=== PATIENT | male | born 1955 | race Caucasian/White ===

== ENCOUNTER 2017-04-08 06:29 | Inpatient (IN) | payer BC ==
[2017-04-08] MEDS ORDERED: ceFAZolin 2 GM in Premix Bag 1 BAG IV SCH (07:12)
[2017-04-08] MEDS ORDERED: Propofol 200 MG/20 ML SDV ONE ×2 (07:15→09:23)
[2017-04-08] MEDS ORDERED: Lidocaine 2% 5 ML SDV ONE (07:15)
[2017-04-08] MEDS ORDERED: Midazolam 1 MG/ML 2 ML SDV ONE (07:16)
[2017-04-08] MEDS ORDERED: fentaNYL 100 MCG/2 ML SDV ONE (07:16)
[2017-04-08] MEDS ORDERED: fentaNYL 250 MCG/5 ML SDV ONE (07:16)
[2017-04-08] MEDS ORDERED: Neostigmine Methylsulfate 1 MG/ML 5 ML Syringe ONE (07:17)
[2017-04-08] MEDS ORDERED: Ondansetron 4 MG/2 ML SDV ONE (07:17)
[2017-04-08] MEDS ORDERED: Rocuronium 10 MG/ML 10 ML Syringe ONE (07:17)
[2017-04-08] MEDS ORDERED: ePHEDrine 50 MG/ML SDV ONE ×2 (07:18→08:33)
[2017-04-08] MEDS: Lactated Ringers 1,000 ML IV SCH ×3 (07:30→22:27)
--- NOTE | 2017-04-08 07:33 | PCM.PREANE ---
Preanesthetic Assessment - Anesthesia/Transfusion/Family Hx Anesthesia History: Prior Anesthesia Without Reaction Family History of Anesthesia Reaction: No Transfusion History: No Prior Transfusion(s) - Review of Systems General: No Symptoms Pulmonary: No Symptoms Cardiovascular: No Symptoms Gastrointestinal: No Symptoms Neurological: No Symptoms Other: Reports: None - Physical Assessment NPO Status Date: 04/07/17 NPO Status Time: 23:00 O2 Sat by Pulse Oximetry: 97 Respiratory Rate: 16 Vital Signs: Last Vital Signs Temp 36.8 C 04/08/17 07:00 Pulse 90 04/08/17 07:00 Resp 16 04/08/17 07:00 BP 137/88 04/08/17 07:00 Pulse Ox 97 04/08/17 07:00 Height: 1.85 m Weight: 96.162 kg ASA Class: 2 Mental Status: Alert & Oriented x3 Airway Class: Mallampati = 2 Dentition: Reports: Normal Dentition ROM/Head Extension: Full Lungs: Clear to Auscultation, Normal Respiratory Effort Cardiovascular: Regular Rate, Regular Rhythm - Allergies Allergies/Adverse Reactions: Allergies Allergy/AdvReac Type Severity Reaction Status Date / Time No Known Allergies Allergy Verified 04/06/17 14:13 - Anesthesia Plan Pre-Op Medication Ordered: None (recemtly started on lisinopril for htn) - Acknowledgements Anesthesia Type Planned: Spinal Pt an Appropriate Candidate for the Planned Anesthesia: Yes Alternatives and Risks of Anesthesia Discussed w Pt/Guardian: Yes Pt/Guardian Understands and Agrees with Anesthesia Plan: Yes PreAnesthesia Questionnaire - Past Health History Medical/Surgical History: Denies Medical/Surgical History Cardiovascular History: Reports: Hypertension Other Cardiovascular History: recently diagnosed Gastrointestinal History: Reports: GERD Other Gastrointestinal History: takes OTC Prilosec Musculoskeletal History: Reports: Arthritis - Past Surgical History Head Surgeries/Procedures: GI Surgical History: Reports: Colonoscopy - SUBSTANCE USE Smoking Status *Q: Never Smoker Tobacco Use Within Last Twelve Months: No Recreational Drug Use History: No - HOME MEDS Home Medications: Home Meds Aspirin [[place] Aspirin] 81 mg PO DAILY 01/28/16 [History] Fish Oil/[place]-3 Fatty Acids [Fish Oil 1,000 MG] 1,000 mg PO DAILY 01/28/16 [ History] Gluc 2KCl/Chondr/Sandee Hy/Hy Ac [Glucosamine & Chondroitin Cap] 1 tab PO DAILY [History] Multivitamin [Multivitamins] 1 tab PO DAILY 01/28/16 [History] Lisinopril 20 mg PO QAM 04/06/17 [History] Omeprazole Magnesium [Prilosec Otc] 10 mg PO DAILY 04/06/17 [History] - CURRENT (IN HOUSE) MEDS Current Meds: Current Medications Cefazolin Sodium/Dextrose 2 gm (/ Premix) 50 mls @ 50 mls/hr IV ONETIME [facility] Lactated Ringer's (Ringers, Lactated) 1,000 mls @ 100 mls/hr IV ASDIRECTED [facility] Tranexamic Acid (Cyklokapron) 2,000 mg IV ONETIME ONE Stop: 04/08/17 08:01 Discontinued Medications Ephedrine Sulfate (Ephedrine Sulfate) Confirm Administered Dose 50 mg .ROUTE .STK-MED ONE Stop: 04/08/17 07:19 Fentanyl (Sublimaze) Confirm Administered Dose 100 mcg .ROUTE .STK-MED ONE Stop: 04/08/17 07:17 Fentanyl (Sublimaze) Confirm Administered Dose 250 mcg .ROUTE .STK-MED ONE Stop: 04/08/17 07:17 Glycopyrrolate () Confirm Administered Dose 1 mg .ROUTE .STK-MED ONE Stop: 04/08/17 07:18 Lidocaine (Xylocaine-Mpf 2%) Confirm Administered Dose 10 ml .ROUTE .STK-MED ONE Stop: 04/08/17 07:16 Midazolam HCl (Versed 1 Mg/Ml) Confirm Administered Dose 2 mg .ROUTE .STK-MED ONE Stop: 04/08/17 07:17 Neostigmine Methylsulfate (Neostigmine) Confirm Administered Dose 5 mg .ROUTE .STK-MED ONE Stop: 04/08/17 07:18 Ondansetron HCl (Zofran) Confirm Administered Dose 4 mg .ROUTE .STK-MED ONE Stop: 04/08/17 07:18 Propofol (Diprivan 20 Ml) Confirm Administered Dose 400 mg .ROUTE .STK-MED ONE Stop: 04/08/17 07:16 Rocuronium [place] (Zemuron) Confirm Administered Dose 100 mg .ROUTE .STK-MED ONE Stop: 04/08/17 07:18 Tranexamic Acid (Cyklokapron) Confirm Administered Dose 2,000 mg .ROUTE .STK- MED ONE Stop: 04/08/17 07:24
[2017-04-08] MEDS ORDERED: fentaNYL 100 MCG/2 ML SDV IVPUSH PRN (09:00)
[2017-04-08] MEDS ORDERED: HYDROmorphone 2 MG/ML Syringe IVPUSH ONE (09:00)
[2017-04-08] MEDS ORDERED: Aluminum Hydroxide/Magnesium Hydroxide/Simethicone Susp 30 ML Cup PO PRN (09:58)
[2017-04-08] MEDS ORDERED: diphenhydrAMINE 25 MG Cap PO PRN (09:58)
[2017-04-08] MEDS ORDERED: Morphine 4 MG/ML Syringe IVPUSH PRN (09:58)
[2017-04-08] MEDS ORDERED: Ondansetron 4 MG/2 ML SDV IV PRN (09:58)
[2017-04-08] MEDS ORDERED: Bisacodyl 10 MG Supp RECTAL PRN (09:58)
--- NOTE | 2017-04-08 10:00 | PCM.OPNOTE ---
- General Post-Op/Procedure Note Date of Surgery/Procedure: 04/08/17 Operative Procedure(s): right anterior total hip arthroplasty Findings: severe OA Pre Op Diagnosis: right hip osteoarthritis Post-Op Diagnosis: same Anesthesia Technique: General ET Tube, Spinal Primary Surgeon: Gabino Bee Mai Automobile Mechanic Radiator: Yadi Marin Reason Automobile Mechanic Radiator Was Necessary: positioning, relocation and closing Pathology: femoral head EBL in mLs: 300 Condition: Good
--- NOTE | 2017-04-08 11:43 | OR ---
SURGEON: Gabino Rob MD DATE OF PROCEDURE: 04/08/2017 STATISTICAL TECHNICIAN: SHIRA Palomino. PREOPERATIVE DIAGNOSIS: Right hip osteoarthritis. POSTOPERATIVE DIAGNOSIS: Right hip osteoarthritis. OPERATION PERFORMED: Right anterior total hip arthroplasty. ANESTHESIA: Spinal and general. COMPLICATION: None. ESTIMATED BLOOD LOSS: 300 mL. SPECIMENS: Femoral head. IMPLANT: Paulo Continuum trabecular metal shell with cluster holes, 58 mm outer diameter, one 6.5 x 30 mm bone screw, Vivacit-E neutral liner, 36 mm inner diameter, M/L Taper press-fit stem, size 13.5, standard offset, and Biolox delta ceramic femoral head 36 mm diameter, -3.5 neck length. INDICATIONS: The patient is a 61-year-old male with severe hip osteoarthritis. He has failed conservative management and wished to undergo above procedure. He understands the risks, benefits, alternatives, and complications of the procedure including, but not limited to infection, neurovascular injury, continued pain, nonresolution of symptoms, dislocation, leg-length discrepancy, or fracture, and he wished to proceed. SHIRA Marin was instrumental in case with positioning, manipulating the leg, relocation, and closing. DESCRIPTION OF PROCEDURE: The patient was seen in the preoperative area. Operative site was marked. He was taken to the operating room and spinal anesthetic was given. The operative leg had been marked with the patient. The patient was placed supine on the Brown table. General anesthesia was induced. Endotracheal tube was placed. The legs were placed in the leg bars and the right hip was prepped and draped in sterile fashion using alcohol followed by ChloraPrep. A formal time-out was taken, identifying the correct patient, procedure, and extremity. He received preop antibiotics, 2 g Ancef and also received 2 g TXA. [place]an covering is over the incision. A 10 cm incision starting just lateral to the ASIS going obliquely down to the femur was made. Dissection was carried down to the subcutaneous tissues. Hemostasis was obtained. The fascia overlying the TFL was opened and the interval between TFL and sartorius and deep between the abductors and rectus was performed protecting the lateral femoral cutaneous nerve. A deep Giovanni retractor was placed. The vastus lateralis fascia was opened. The anterior vessels were coagulated. The capsule was then held and tagged with two FiberWire's. The neck was cut from the saddle region to 1 cm above the lesser trochanter based on preoperative templating and the head was removed. It was found to have severe arthritis with osteophytes and complete obliteration of the joint space. The anterior and posterior retractors were placed. Inferior capsule was released. The ileus psoas was left alone. The labrum remnants were removed as well as the pulvinar and then sequential reaming under fluoroscopic control after planing the bed to make sure it was level, it was performed with starting at 53 mm based on the size of the head at 53. It was reamed up to 57 and then a continuum trabecular metal shell with cluster holes placed in 40 degrees of abduction, 10-15 degrees of anteversion. This had excellent press fit. Once straight superior bone screw was placed after drilling. The wound was irrigated and the neutral liner was impacted. There was no overhang anteriorly of the shell. The leg was then externally rotated, abducted, and extended after placing the femoral lift. The superior capsule obturator, internus, and piriformis were released. The central canal finder was utilized and hip was sequentially broached from size 4 up to a 13.5, it was trial and reduced with a standard offset +3.5 neck length. Printed overlay technique with the opposite hip with fluoroscopy showed equal offset with leg be about 6 mm long. The hip was once again dislocated and the final 13.5 standard offset M/L taper stem was impacted following the [place] version. It was trialed and reduced with a zero neck length. Printed overlay technique showed to be slightly longer but equal offset and therefore the hip was dislocated. A -3.5 ceramic head, 36 mm inner diameter was impacted. Once again, final reduction films showed equal leg lengths and offset compared to the opposite side. Wound was thoroughly irrigated throughout the case. The 2 tag sutures were tied together. The fascia closed with #1 Vicryl, subcutaneous tissues with 2-0 Strata-Fix. Skin was closed with running 4-0 Monocryl. Dermabond tape and Aquacel dressing were placed. The patient was extubated in operating room and transferred to recovery room in stable condition. Sponge and needle counts were correct at the end of the case. There were no complications. PLAN: The patient will be given postoperative protocol with aspirin for DVT prophylaxis. KELLY BOSS /[id number]
--- NOTE | 2017-04-08 12:20 | PCM.POSTAN ---
POST ANESTHESIA ASSESSMENT - MENTAL STATUS Mental Status: Alert, Oriented - RESPIRATORY Respiratory Status: Respiratory Rate WNL, Airway Patent, O2 Saturation Stable - CARDIOVASCULAR CV Status: Pulse Rate WNL, Blood Pressure Stable - GASTROINTESTINAL GI Status: No Symptoms - POST OP HYDRATION Hydration Status: Adequate & Stable
[2017-04-08] MEDS: Acetaminophen/HYDROcodone 325-5 MG Tab PO PRN ×4 (13:22→22:22)
--- NOTE | 2017-04-08 15:54 | CR ---
EXAMINATION: Right hip HISTORY: Arthroplasty COMPARISON: 02/10/2017 TECHNIQUE: 4 fluoroscopic images provided. FINDINGS/IMPRESSION: Operative control films demonstrate placement of right total hip hardware. Kacie ining osseous structures appear unremarkable.
[2017-04-08] MEDS: ceFAZolin 2 GM in Premix Bag 1 BAG IV SCH (15:58)
--- NOTE | 2017-04-08 18:21 | PCM48HPAN ---
Post Anesthesia Note - EVALUATION WITHIN 48HRS OF ANESTHETIC Vital Signs in Normal Range: Yes Patient Participated in Evaluation: Yes Respiratory Function Stable: Yes Airway Patent: Yes Cardiovascular Function Stable: Yes Hydration Status Stable: Yes Pain Control Satisfactory: Yes Nausea and Vomiting Control Satisfactory: Yes Mental Status Recovered: Yes
[2017-04-08] MEDS: Docusate Sodium 100 MG Cap PO SCH (21:18)
[2017-04-09] MEDS: ceFAZolin 2 GM in Premix Bag 1 BAG IV SCH (00:15)
[2017-04-09] MEDS: Acetaminophen/HYDROcodone 325-5 MG Tab PO PRN ×2 (04:08→08:30)
[2017-04-09] MEDS ORDERED: Sodium Chloride 0.9% 10 ML Syringe FLUSH PRN (07:19)
[2017-04-09] MEDS ORDERED: Sodium Chloride 0.9% 2.5 ML Syringe FLUSH PRN (07:19)
[2017-04-09] MEDS ORDERED: Omeprazole 20 MG Cap.CR PO SCH (07:30)
--- NOTE | 2017-04-09 07:43 | PCM.SN ---
- Free Text/Narrative Note: S: overall doing very well, just a little stiff. Ambulating in hallway and able to go to bathroom. tolerating PO. no CP/SOB O: afebrile, vital signs stable dressing clean/dry/intact. 2+ pedal pulse. normal motor and sensation distally. no swelling distally. small swelling in left thigh. labs pending A/P: POD #1 right BEBETO - full weight bearing. walker -> cane as tolerated - ASA for DVT prophylaxis. - SLIV, d/c today
--- NOTE | 2017-04-09 07:46 | PCM.DCSUM1 ---
Discharge Summary - Hospital Course Free Text/Narrative:: admitted for planned right hip replacement Brief History: severe right hip OA - Discharge Data Discharge Date: 04/09/17 Discharge Disposition: Home, Self-Care 01 Condition: Good - Patient Summary/Data Operative Procedure(s) Performed: right anterior total hip arthroplasty Consults: Consultations 04/08/17 09:58 PT Evaluation and Treatment [CONS] Routine Hospital Course: did well postoperatively with no issues. ambulated and pain was contolled. - Patient Instructions Diet: Usual Diet as Tolerated Activity: Full Weight Bearing Driving: Do Not Drive Driving, Other: may drive in 2 weeks Showering/Bathing: May Shower Wound/Incision Care: Do NOT Change Dressing Notify Provider of: Fever, Swelling and Redness, Drainage - Discharge Plan Home Medications: Home Meds Aspirin [[place] Aspirin] 81 mg PO DAILY 01/28/16 [History] Fish Oil/[place]-3 Fatty Acids [Fish Oil 1,000 MG] 1,000 mg PO DAILY 01/28/16 [ History] Gluc 2KCl/Chondr/[place] Hy/Hy Ac [Glucosamine & Chondroitin Cap] 1 tab PO DAILY [History] Multivitamin [Multivitamins] 1 tab PO DAILY 01/28/16 [History] Lisinopril 20 mg PO QAM 04/06/17 [History] Omeprazole Magnesium [Prilosec Otc] 10 mg PO DAILY 04/06/17 [History] Patient Handouts: Acetaminophen; Hydrocodone tablets or capsules, Total Hip Replacement, Care After, [id number], Docusate capsules, Aspirin Gastro- resistant tablet Referrals: Yadi Marin PA [Physician Job Estimator] - 04/20/17 1:00 pm - Discharge Summary/Plan Comment DC Time >30 min.: No - Patient Data Vitals - Most Recent: Last Vital Signs Temp 37.0 C 04/09/17 05:00 Pulse 101 H 04/09/17 05:00 Resp 19 04/09/17 05:00 BP 106/71 04/09/17 05:00 Pulse Ox 93 L 04/09/17 05:00 Weight - Most Recent: 96.162 kg I&O - Last 24 hours: Intake & Output 04/08/17 04/09/17 04/09/17 22:59 06:59 14:59 Intake Total 1566 2450 Output Total 300 2275 Balance 1266 175 Med Orders - Current: Current Medications Hydrocodone Bitart/Acetaminophen ([place] 325-5 Mg) 1 - 2 tab PO Q4H PRN PRN Reason: Pain Last Admin: 04/09/17 04:08 Dose: 2 tab Al Hydroxide/Mg Hydroxide (Mag-Al Plus) 30 ml PO Q4H PRN PRN Reason: indigestion Last Admin: 04/08/17 13:26 Dose: 30 ml Aspirin (Aspirin) 325 mg PO BID [facility] Bisacodyl (Dulcolax) 10 mg RECTAL DAILY PRN PRN Reason: Constipation Diphenhydramine HCl (Benadryl) 25 - 50 mg PO Q6H PRN PRN Reason: Itching Docusate Sodium (Colace) 100 mg PO BID [facility] Last Admin: 04/08/17 21:18 Dose: 100 mg Fentanyl (Sublimaze) 50 mcg IVPUSH Q5M PRN PRN Reason: Pain (severe 7-10) Stop: 04/09/17 09:00 Fish Oil (Fish Oil) 1 gm PO DAILY [facility] Cefazolin Sodium/Dextrose 2 gm (/ Premix) 50 mls @ 50 mls/hr IV ONETIME [facility] Lactated Ringer's (Ringers, Lactated) 1,000 mls @ 100 mls/hr IV ASDIRECTED [facility] Last Admin: 04/08/17 22:27 Dose: 100 mls/hr Lisinopril (Prinivil) 20 mg PO QAM [facility] Morphine Sulfate (Morphine) 1 - 3 mg IVPUSH Q3H PRN PRN Reason: Pain Multivitamins/Minerals (Thera M Plus) 1 tab PO DAILY [facility] Omeprazole (Omeprazole) 20 mg PO ACBREAKFAST [facility] Last Admin: 04/09/17 06:39 Dose: 20 mg Ondansetron HCl (Zofran) 4 mg IV Q6HR PRN PRN Reason: NAUSEA/VOMITING Gluc 2kcl/Chondr/[place] Hy/Hy Ac [ Glucosamine & Chondroitin] 1 each PO DAILY [facility] Sodium Chloride (Saline Flush) 10 ml FLUSH ASDIRECTED PRN PRN Reason: Keep Vein Open Sodium Chloride (Saline Flush) 2.5 ml FLUSH ASDIRECTED PRN PRN Reason: Keep Vein Open Discontinued Medications Ephedrine Sulfate (Ephedrine Sulfate) Confirm Administered Dose 50 mg .ROUTE .STK-MED ONE Stop: 04/08/17 07:19 Ephedrine Sulfate (Ephedrine Sulfate) Confirm Administered Dose 50 mg .ROUTE .[facility] ONE Stop: 04/08/17 08:34 Fentanyl (Sublimaze) Confirm Administered Dose 100 mcg .ROUTE .ST-MED ONE Stop: 04/08/17 07:17 Fentanyl (Sublimaze) Confirm Administered Dose 250 mcg .ROUTE .[facility] ONE Stop: 04/08/17 07:17 Glycopyrrolate () Confirm Administered Dose 1 mg .ROUTE .ST-MED ONE Stop: 04/08/17 07:18 Hydromorphone HCl (Dilaudid) 0 mg IVPUSH ONETIME ONE Stop: 04/08/17 09:01 Cefazolin Sodium/Dextrose 2 gm (/ Premix) 50 mls @ 100 mls/hr IV Q8H [facility] Stop: 04/09/17 00:29 Last Admin: 04/09/17 00:15 Dose: 100 mls/hr Lidocaine (Xylocaine-Mpf 2%) Confirm Administered Dose 10 ml .ROUTE .ST-MED ONE Stop: 04/08/17 07:16 Midazolam HCl (Versed 1 Mg/Ml) Confirm Administered Dose 2 mg .ROUTE .[facility] ONE Stop: 04/08/17 07:17 Neostigmine Methylsulfate (Neostigmine) Confirm Administered Dose 5 mg .ROUTE .[facility] ONE Stop: 04/08/17 07:18 Ondansetron HCl (Zofran) Confirm Administered Dose 4 mg .ROUTE .[facility] ONE Stop: 04/08/17 07:18 Propofol (Diprivan 20 Ml) Confirm Administered Dose 400 mg .ROUTE .ST-MED ONE Stop: 04/08/17 07:16 Propofol (Diprivan 20 Ml) Confirm Administered Dose 200 mg .ROUTE .[facility] ONE Stop: 04/08/17 09:24 Rocuronium [place] (Zemuron) Confirm Administered Dose 100 mg .ROUTE .ST-MED ONE Stop: 04/08/17 07:18 Tranexamic Acid (Cyklokapron) 2,000 mg IV ONETIME ONE Stop: 04/08/17 08:01 Tranexamic Acid (Cyklokapron) Confirm Administered Dose 2,000 mg .ROUTE .ST- MED ONE Stop: 04/08/17 07:24 *Q Meaningful Use (DIS) - VTE *Q VTE Criteria *Q: - Stroke *Q Stroke Criteria *Q: - AMI *Q AMI Criteria *Q:
[2017-04-09] MEDS: Docusate Sodium 100 MG Cap PO SCH (08:15)
[2017-04-09 08:18] VITALS: BP 118/78
[2017-04-09] MEDS ORDERED: Aspirin 325 MG Tab PO SCH (09:00)
[2017-04-09] MEDS ORDERED: [UNRECOGNIZED DRUG - OTHER] PO SCH (09:00)
[2017-04-09] MEDS ORDERED: Multivitamins with Iron/Calcium/Folic Acid/Minerals Tab PO SCH (09:00)
[2017-04-09] MEDS ORDERED: Fish Oil/Omega-3 Fatty Acids 1 Gm Cap PO SCH (09:00)
[2017-04-09] MEDS ORDERED: Lisinopril 10 MG Tab PO SCH (09:00)
== END 2017-04-09 13:05 | disposition home or self-care (01) | DRG 301 ==
LOC: MW.MS 06:29
PROVIDERS: ADMIT Orthopaedic Surgery; ATTEND Orthopaedic Surgery
PROC: 0SR90JZ Replacement of Right Hip Joint with Synthetic Substitute, Open Approach (ICD-10-PCS; principal; 2017-04-08)
DX: M16.11 Unilateral primary osteoarthritis, right hip (principal); Z79.899 Other long term (current) drug therapy
CPT/HCPCS: 01214; 76000; 76000-26; 88304; 88311; 97161-GP; 97530-GP; A9270-GY; C1713; C1776; J0690; J2250; J2405; J2704; J3010; J7120

== ENCOUNTER 2025-02-02 06:53 | Day surgery (SDC) | payer MEDICARE ==
[2025-02-02] MEDS: Lactated Ringers 1,000 ML IV SCH (07:15)
[2025-02-02] MEDS ORDERED: propofoL 500 MG/50 ML 50 ML ONE (07:21)
[2025-02-02 09:28] VITALS: BP 120/80; PULSE 74
== END 2025-02-02 09:15 | disposition home or self-care (01) ==
LOC: MW.SDS 06:53
PROVIDERS: ATTEND Surgery
DX: K57.31 Diverticulosis of large intestine without perforation or abscess with bleeding (principal); K64.8 Other hemorrhoids; K62.89 Other specified diseases of anus and rectum; I10 Essential (primary) hypertension; E78.00 Pure hypercholesterolemia, unspecified; Z79.82 Long term (current) use of aspirin; Z79.899 Other long term (current) drug therapy
CPT/HCPCS: 45378; J2003; J2704; J7120; 00811